=== PATIENT | male | born 1950 | race Caucasian/White ===

== ENCOUNTER 2016-11-11 11:10 | Outpatient (CLI) | payer BC ==
[~2016-11-11] VITALS: Ht 177.8 cm; Wt 103.6 kg
--- NOTE | ~2016-11-11 | CATH ---
Cardiac Diagnostic + PCI Report Demographics Patient Name BALDEV Ham Gender Male Date of 1950 Age 66 year(s) Patient Number [id number] Date of Study 11/11/2016 Visit Number [id number] Room Number G6399 [place] [id number] Ht 152.4 cm Wt 103.6 kg Referring [facility] Primary Physician Physician Sunita Kovacs MD Performing [facility] Secondary Physician Physician Sunita Kovacs MD Diagnostic [facility] Assisting Physician Physician Sunita Kovacs MD Interventional [facility] Physician Fund Raiser Physician Sunita Kovacs MD Findings and Conclusions Diagnostic Findings and Conclusion 50-60% mid LAD Diagnostic Recommendations iFR and FFR of LAD Interventional Findings and Conclusion Nonischemic iFR and FFR of LAD Interventional Recommendations Continue medical therapy. Procedure Description The patient was brought to the diagnostic cardiac catheterization-EP laboratory in the fasting, non-sedated state. Informed consent was obtained in the written and verbal form after the risks and benefits were explained. The patient had no further questions and agreed to proceed. The planned puncture-incision site(s) were shaved and prepped with ChloraPrep and draped in the usual sterile manner. Conscious sedation, supplemental oxygen, and pain control medications were delivered by a registered nurse under physician guidance. Surface ECG rhythm, blood pressure measurement, and pulse oximetry were monitored throughout the procedure. Arterial access. The access site was infiltrated with lidocaine. The vessel was entered with the Seldinger technique. A sheath was advanced into the vessel and used for catheter placement. Selective left coronary angiography. A catheter was advanced into the left coronary vessel ostium under Fluoroscopic guidance. Contrast was injected by hand. Images were obtained in multiple projections. Selective right coronary angiography. A catheter was advanced into the right coronary vessel ostium under fluoroscopic guidance. Contrast was injected by hand. Images were obtained in multiple projections. iFR measurement was performed. The vessel was entered with a guiding catheter. The iFR wire was normalized and then advanced across the lesion. Measurements were taken. FFR measurement was performed. The vessel was entered with a guiding catheter. The FFR wire was normalized and then advanced across the lesion. Maximum hyperemia was achieved using adenosine. Arterial artery hemostasis was achieved. The patient was transferred to a regular nursing floor via cart accompanied by a nurse. The patient left the laboratory in stable condition. Diagnostic Cath Status: Elective Procedure Procedure Type Diagnostic procedure:Angiography:, Coronary Angios PCI procedure:Additional Imaging:, FFR/iFR:, Initial Vessel Indications: Pre surgical clearance. The procedure was explained in detail to the patient. Risks, complications and alternative treatments were reviewed. Written consent was obtained. Medications Reviewed with Patient prior to Procedure. Angiographic Findings Dominance: Right Cardiac Arteries and Lesion Findings LMCA: Normal (0% Stenosis).Patent LAD: Diagonal small. Lesion on Mid LAD: 60% stenosis . FFR + + + + !FFR !Stage/Medication !Dosage ! + + + + !0.81 !Adenosine (I.V) !140 ! + + + + !0.93 ! ! ! + + + + Comments:50-60% lesion Devices used - Verrata Pressure Wire. Number of passes: 1. LCx: Normal (0% Stenosis).Circumflex patent. OM small. RCA: Normal (0% Stenosis).Patent Ramus: Lesion on Ramus: Proximal subsection.20% stenosis . Coronary Tree Procedure Data Procedure Date Date: 11/11/2016Start: 01:24 PMEnd: 02:13 PM Entry Locations - Retrograde Percutaneous access was performed through the Left Radial artery (Primary location). A 6 Fr sheath was inserted. Unsuccessful closure attempt was performed using: an R band. Hemostasis was successfully obtained using Mechanical Compression. Closure Comments: 10 cc of air in the R band. Deployed by . Procedure Medications Order and Administration + + + +---------+ !Time !Medication !Dosage !Route ! + + + +---------+ !11/11/2016 !Versed !0.5 mg !I.V. ! !01:23 PM ! ! ! ! + + + +---------+ !11/11/2016 !Fentanyl !25 mcg !I.V. ! !01:24 PM ! ! ! ! + + + +---------11/11/2016 !PAE Radial Cocktail: Heparin 5000 ! !I.A. ! !01:25 PM !units, Nitroglycerin 200mcg, ! ! ! ! !Verapamil 3 mg (ACC_3) ! ! ! + + + +---------+ 11/11/2016 !Heparin (ACC_3) !3000 units !I.V. ! !01:36 PM ! ! !bolus ! + + + +---------+ !11/11/2016 !Heparin (ACC_3) !5000 units !I.V. ! !01:48 PM ! ! !bolus ! + + + +---------+ 11/11/2016 !Adenosine (IV) !140 !I.V. drip! !01:49 PM ! !mcg/kg/min ! ! + + + +---------+ 11/11/2016 !Adenosine (IV) !140 !I.V. drip! !01:52 PM ! ! ! ! + + + +---------+ 11/11/2016 !0.9% NaCl ! ! ! !02:04 PM ! ! ! ! + + + +---------+ Devices Used - A6 Fr. BS JR 4 Diag. Catheterwas used for:Right coronary angiography. - A6 Fr. BS JL 3.5 Diag. Catheterwas used for:Left coronary angiography.Unable to cannulate the vessel. - A6 Fr. BS JL 4 Diag. Catheterwas used for:Left coronary angiography. - A6 Fr. XBLAD 3.5 Guide Catheterwas used for:LAD Intervention. Contrast Material - Isovue 74116 ml Fluoroscopy Time: Diagnostic: 6:24 minutes. Total: 6:24 minutes. Fluoroscopy Dose: Diagnostic: 1017 mGy. Total: 1017 mGy. Estimated Blood Loss: 15 ml. Medical History Allergies - No known allergies. Risk Factors The patient risk factors include:treated hypercholesterolemia, treated hypertension, family history of premature CAD, last creatinine: 7.3 mg/dl, creatinine clearance: 14.39 ml/min, dyslipidemia and renal failure currently treated with dialysis. Admission Data Admission Date: 11/11/2016 Admission Time: 11:10 AM Admit Source: Other Insurance Payors: [employer] health insurance. Admission Medications + +------+------+ + + + + !Medication !Dosage!Times !Last !Last !Administered !Comments ! ! ! !Per !Delivery !Delivery ! ! ! ! ! !Day !Date !Time ! ! ! + +------+------+ + + + + !Aspirin ! ! ! ! !Yes ! ! !(any) ! ! ! ! ! ! ! + +------+------+ + + + + !Statin (any)! ! ! ! !Yes ! ! + +------+------+ + + + + !AR ! ! ! ! !Yes ! ! !Inhibitor ! ! ! ! ! ! ! !(any) ! ! ! ! ! ! ! + +------+------+ + + + + Clinical Evaluation Leading to Procedure - The patient's CAD presentation was assessed as: Unstable angina. - The patient's anginal syndrome during the past two weeks was assessed as: Class II according to the [place] Cardiovascular [employer] Classification System (CCS). 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 Snapshots Hemodynamics Condition: Rest O2 Consumption: Estimated: 222.98Heart Rate: 62 bpm Pressures (mmHg) +-----+ + !Site !Pressure ! +-----+ + !AO !99/66 (77) ! +-----+ + !AO !102/64 (77) ! +-----+ + !AO !120/71 (95) ! +-----+ + Shunts Oxygen Values O2 Capacity 163.2 O2 Consumption 222.98 Discharge Data Discharge Date: 11/11/2016 Hospital Status: Outpatient Signatures dtt: Nargis Guzman dtd: 11/11/16 1324 Physician Self Edit
[~2016-11-11 11:10] MED LIST: ASPIRIN EC81 MG PO; CARAFATE1 GM PO; CRESTOR10 MG PO; MEDROL4 MG PO; OMEPRAZOLE40 MG PO; PAIN RELIEVER500 MG PO; PEPCID40 MG PO; RENVELA800 MG PO; ROCALTROL0.5 MCG PO; SODIUM BICARBO650 MG PO; VASOTEC10 MG PO; VITAMIN D22000 UNIT PO; ZYLOPRIM100 MG PO
[2016-11-11 11:45] LABS: BASOPHIL # 0.1 K/uL (0.0-0.2); BASOPHIL % 0.4 %; EOSINOPHIL # 0.1 K/uL (0.0-0.5); HEMATOCRIT 36.2 % (37.0-53.0); IMMATURE GRANULOCYTE # 0.1 K/uL (0.0-0.3); IMMATURE GRANULOCYTE % 0.7 %; LYMPHOCYTE % 8.7 %; MCH 31.7 pg (27.0-34.0); MCHC 33.1 gm/dL (32.0-36.5); MCV 95.8 fl (83.0-98.0); MONOCYTE # 0.9 K/uL (0.0-1.0); MONOCYTE % 7.4 %; NEUTROPHIL # (ANC) 9.6 K/uL (1.4-9.0); NEUTROPHIL % 81.8 %; NRBC % 0 /100WBC (0-0.00); PLATELET COUNT 243 K/uL (150-450); RBC 3.78 M/uL (3.50-5.50); RDW-CV 13.5 % (11.9-14.6); WBC 11.7 K/uL (4.0-11.0)
[2016-11-11 12:00] LABS: INR - (THERAPEUTIC) 0.96 (0.92-1.07); PROTIME 10.1 SECONDS (9.8-11.4); PTT 21 SECONDS (25-32)
[2016-11-11 12:15] LABS: ALBUMIN 3.5 gm/dL (3.5-5.0); ANION GAP 14.6 (10.0-19.0); CALCIUM 9.1 mg/dL (8.5-10.5); POTASSIUM 4.6 mMol/L (3.7-5.1); TOTAL BILIRUBIN 0.5 mg/dL (0.0-1.5)
[2016-11-11 12:17] LABS: CREATININE 7.3 mg/dL (0.6-1.3)
[2016-11-11] MEDS ORDERED: CRESTOR20 MG PO (15:34)
[2016-11-11] MEDS ORDERED: ZETIA10 MG PO (15:34)
== END 2016-11-11 17:33 | disposition disaster alternative care site (69) ==
LOC: GPCU 11:10 → GCAT 11:10
PROVIDERS: Internal Medicine Cardiovascular Disease
PROC: 4A023N7 Measurement of Cardiac Sampling and Pressure, Left Heart, Percutaneous Approach (ICD-10-PCS; principal; 2016-11-11)
PROC: B216YZZ Fluoroscopy of Right and Left Heart using Other Contrast (ICD-10-PCS; 2016-11-11)
DX: I25.110 Atherosclerotic heart disease of native coronary artery with unstable angina pectoris (principal); R94.31 Abnormal electrocardiogram [ECG] [EKG]
CPT/HCPCS: C1769; C1887; C1894; J0153; J1644; J2001; J2250; J3010; J7030